=== PATIENT | female | born 2000 | race Caucasian/White ===

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

== ENCOUNTER 2023-02-12 20:57 | Emergency (ER) | payer BC, OTHER ==
[~2023-02-12] VITALS: Ht 167.6 cm; Wt 52.2 kg
--- NOTE | 2023-02-12 21:10 | NUR ---
[id number] FRM HOME FOR OD "TOOK 20-30 GABAPENTIN PILLS" "WAS TRYING TO ". PATIENT IS AAOX4. ABLE TO MAKE NEEDS KNOWN. +VOMITING AT HOME. PATIENT IS BEING ACCOMPANIED BY SIGNIFANT OTHERS. ATTACHED TO MONITOR. VITALS CHECKED.
--- NOTE | 2023-02-12 21:19 | NUR ---
SPOKE TO RENAN AT [facility] WITH FOLLOWING RECOMMENDATIONS: MONITOR PATINT FOR LOW BP, PROTECT AIR WAY, LABS INCLUDING TOXICOLOGY, CHARCOAL AND 6 HOURS OF OBS FROM THE TIME OF DIGESTION.
--- NOTE | 2023-02-12 21:28 | NUR ---
IV JOSELITO INSERTED ON LEFT AC G20. BLOOD DRAWN AND SENT TO LAB
--- NOTE | 2023-02-12 21:29 | NUR ---
PATIENT ENCOURAGED TO GIVE URINE SAMPLE. SHE IS BEING INSTRUCTED TO LET SITTER KNOW IF SHE IS READY TO PEE.
--- NOTE | 2023-02-12 21:29 | NUR ---
COVID SWAB DONE AND SENT TO LAB
[2023-02-12] MEDS ORDERED: ACTIVATED CHARCOAL 25 GM/120 ML TUBE PO ONE (21:30)
[2023-02-12] MEDS ORDERED: ACTIVATED CHARCOAL 25 GM/120 ML TUBE ONE (21:34)
[2023-02-12 21:35] LABS: BASOPHILS % (AUTO) 0.4 % (0.0-2.0); EOSINOPHILS % (AUTO) 0.4 % (0.0-6.0); HEMATOCRIT 39 % (33-45); LYMPHOCYTES # (AUTO) 2.5 K/uL (0.8-4.8); LYMPHOCYTES % (AUTO) 19.7 % (20.0-44.0); MEAN CORPUSCULAR HGB CONC 33 g/dl (31.0-36.0); MEAN CORPUSCULAR VOLUME 85 fL (82-100); MONOCYTES # (AUTO) 0.9 K/uL (0.1-1.30); NEUTROPHILS # (AUTO) 9.1 K/uL (1.8-8.9); NEUTROPHILS % (AUTO) 72.5 % (43.0-81.0); PLATELET COUNT (AUTO) 255 K/uL (150-450); RED BLOOD CELL COUNT(AUTO) 4.58 MIL/uL (4.0-5.2); WHITE BLOOD COUNT (AUTO) 12.5 K/uL (4.3-11.0)
--- NOTE | 2023-02-12 21:53 | NUR ---
URINE SAMPLE COLLECTED AND SENT TO LAB
--- NOTE | 2023-02-12 22:10 | NUR ---
REFRESH EYEDROPS UNAVAILABLE IN OMNICELL. USED PATIENTS OWN SUPPLY. MD AWARE
[2023-02-12] MEDS: CARBOXYMETHYLCELLULOSE SODIUM 0.4 ML DROPERETTE EACHEYE PRN (22:11)
[2023-02-12 22:18] LABS: ALANINE AMINOTRANSFERASE 17 U/L (12-78); ALBUMIN 4.1 g/dL (3.4-5.0); ALCOHOL, BLOOD < 3 mg/dL (0-0); ALKALINE PHOSPHATASE 54 U/L (46-116); ASPARTATE AMINOTRANSFERASE 16 U/L (15-37); BILIRUBIN,DIRECT 0.2 mg/dL (0.0-0.2); BILIRUBIN,TOTAL 0.6 mg/dL (0.2-1.0); CALCIUM, SERUM 9.6 mg/dL (8.5-10.1); CARBON DIOXIDE 26 mmol/L (21-32); CHLORIDE 104 mmol/L (98-107); CREATININE 0.8 mg/dL (0.6-1.3); GLUCOSE 92 mg/dL (74-106); POTASSIUM 3.8 mmol/L (3.5-5.1); SODIUM SERUM 137 mmol/L (136-145); TOTAL PROTEIN, SERUM 7.3 g/dL (6.4-8.2); UREA NITROGEN, BLOOD 9 mg/dL (7-18)
[2023-02-12 22:24] LABS: ACETAMINOPHEN < 10 ug/ml (10-30)
--- NOTE | 2023-02-12 22:24 | NUR ---
CALLED JESSICA DIAZ FOR PSYCH EVAL
[2023-02-12 22:32] LABS: BILIRUBIN,URINE NEGATIVE (NEGATIVE); COLOR,URINE YELLOW (YELLOW); LEUKOCYTE ESTERASE ,URINE 2+ (NEGATIVE); NITRITE, URINE NEGATIVE (NEGATIVE); PROTEIN,URINE NEGATIVE (NEGATIVE); UGLUCOSE NEGATIVE (NEGATIVE); UROBILINOGEN,URINE 0.2 EU/dL (0.2)
[2023-02-12 22:47] LABS: BACTERIA,URINE Few /HPF (None Seen); RBC,URINE 0-2 /HPF (0-2); WBC,URINE 21-50 /HPF (0-3)
[2023-02-12] MEDS ORDERED: CIPROFLOXACIN HCL 500 MG TABLET PO ONE (23:00)
--- NOTE | 2023-02-12 23:10 | NUR ---
CRISIS BOTTLING LINE ATTENDANT MARTIR AT BED SIDE
[2023-02-12] MEDS ORDERED: CIPROFLOXACIN HCL 500 MG TABLET ONE (23:13)
--- NOTE | 2023-02-12 23:19 | NUR ---
NORA FROM [facility] REQUESTED UTOX RESULTS. REPORTED
[2023-02-13] MEDS ORDERED: NITR100C6 PO (03:05)
[2023-02-13] MEDS ORDERED: CIPR-262 PO (03:10)
--- NOTE | 2023-02-13 03:25 | NUR ---
Patient discharged to home in stable condition. Written and verbal after care instructions given. Patient verbalizes understanding of instruction. IV removed. Catheter intact and site benign. Pressure and 4x4 applied to site. No bleeding noted.
[2023-02-13 03:31] VITALS: BP 103/58
== END 2023-02-13 03:32 | disposition home or self-care (01) ==
LOC: ER 20:58
DX: T42.6X2A Poisoning by other antiepileptic and sedative-hypnotic drugs, intentional self-harm, initial encounter (principal); N39.0 Urinary tract infection, site not specified; H04.129 Dry eye syndrome of unspecified lacrimal gland; F32.A Depression, unspecified; F41.9 Anxiety disorder, unspecified; Z79.899 Other long term (current) drug therapy; Z98.890 Other specified postprocedural states; Z88.0 Allergy status to penicillin; Y92.89 Other specified places as the place of occurrence of the external cause
CPT/HCPCS: 36415; 80048-TC; 80076-TC; 81001; 85025-TC; 87086-TC; G0480

== ENCOUNTER 2024-03-14 19:12 | Emergency (ER) | payer BC ==
[~2024-03-14] VITALS: Ht 167.6 cm; Wt 56.7 kg
[~2024-03-14 19:12] MED LIST changes: +CIPR-262 PO
[2024-03-14 19:39] LABS: BASOPHILS % (AUTO) 0.1 % (0.0-2.0); EOSINOPHILS % (AUTO) 0.4 % (0.0-6.0); HEMATOCRIT 35 % (33-45); HEMOGLOBIN 12.1 g/dL (11.5-14.8); LYMPHOCYTES # (AUTO) 1.5 K/uL (0.8-4.8); LYMPHOCYTES % (AUTO) 15.5 % (20.0-44.0); MEAN CORPUSCULAR HEMOGLOBIN 30 PG (26.0-33.0); MEAN CORPUSCULAR HGB CONC 34 g/dl (31.0-36.0); MEAN CORPUSCULAR VOLUME 87 fL (82-100); MONOCYTES # (AUTO) 0.6 K/uL (0.1-1.30); MONOCYTES % (AUTO) 6.3 % (2.0-12.0); NEUTROPHILS # (AUTO) 7.4 K/uL (1.8-8.9); NEUTROPHILS % (AUTO) 77.7 % (43.0-81.0); PLATELET COUNT (AUTO) 223 K/uL (150-450); RED BLOOD CELL COUNT(AUTO) 4.08 MIL/uL (4.0-5.2); RED CELL DISTRIBUTION WIDTH 14.5 % (11.5-15.0); WHITE BLOOD COUNT (AUTO) 9.5 K/uL (4.3-11.0)
[2024-03-14 20:02] LABS: CALCIUM, SERUM 8.8 mg/dL (8.5-10.1); CARBON DIOXIDE 26 mmol/L (21-32); CHLORIDE 107 mmol/L (98-107); GLUCOSE 102 mg/dL (74-106); POTASSIUM 3.8 mmol/L (3.5-5.1); SODIUM SERUM 141 mmol/L (136-145); UREA NITROGEN, BLOOD 18 mg/dL (7-18)
[2024-03-14 20:11] LABS: ALANINE AMINOTRANSFERASE 16 U/L (12-78); ALBUMIN 3.7 g/dL (3.4-5.0); ALCOHOL, BLOOD < 3 mg/dL (0-10); ALKALINE PHOSPHATASE 69 U/L (46-116); ASPARTATE AMINOTRANSFERASE 14 U/L (15-37); BILIRUBIN,DIRECT 0.2 mg/dL (0.0-0.2); BILIRUBIN,TOTAL 0.5 mg/dL (0.2-1.0); TOTAL PROTEIN, SERUM 7.2 g/dL (6.4-8.2)
[2024-03-14 20:12] LABS: ACETAMINOPHEN 0 ug/ml (10-30); SALICYLATE 0.6 mg/dL (2.8-20.0)
[2024-03-14] MEDS ORDERED: POLYVINYL ALCOHOL 15 ML BOTTLE ONE (20:23)
[2024-03-14] MEDS ORDERED: TDAP [DIPH/PERTUSSIS/TET] 0.5 ML VIAL IM ONE (20:24)
[2024-03-14] MEDS: TDAP [DIPH/PERTUSSIS/TET] 0.5 ML VIAL IM ONE (20:26)
[2024-03-14] MEDS: POLYVINYL ALCOHOL 15 ML BOTTLE EACHEYE PRN (20:26)
[2024-03-15 00:21] LABS: APPEARANCE,URINE CLEAR (CLEAR); BILIRUBIN,URINE NEGATIVE (NEGATIVE); BLOOD, URINE NEGATIVE Ery/uL (NEGATIVE); COLOR,URINE YELLOW (YELLOW); KETONES,URINE 1+ mg/dL (NEGATIVE); LEUKOCYTE ESTERASE ,URINE NEGATIVE (NEGATIVE); NITRITE, URINE NEGATIVE (NEGATIVE); PROTEIN,URINE NEGATIVE (NEGATIVE); UGLUCOSE NEGATIVE (NEGATIVE); UROBILINOGEN,URINE 0.2 EU/dL (0.2)
[2024-03-15 00:29] LABS: PREGNANCY TEST URINE QUAL NEGATIVE (NEGATIVE)
[2024-03-15 00:39] LABS: AMPHETAMINE, URINE NEGATIVE (NEGATIVE); BARBITURATE, URINE NEGATIVE (NEGATIVE); BENZODIAZEPINE, URINE NEGATIVE (NEGATIVE); CANNABINOID, URINE NEGATIVE (NEGATIVE); COCCAINE, URINE NEGATIVE (NEGATIVE); OPIATE, URINE NEGATIVE (NEGATIVE); PHENCYCLIDINE SCREEN,URINE NEGATIVE (NEGATIVE)
[2024-03-15 03:40] VITALS: BP 118/76; TEMP 98.4; O2SAT 100
== END 2024-03-15 03:48 | disposition home or self-care (01) ==
LOC: ER 19:25
DX: S61.512A Laceration without foreign body of left wrist, initial encounter (principal); R45.851 Suicidal ideations; R10.2 Pelvic and perineal pain; Z79.899 Other long term (current) drug therapy; F32.A Depression, unspecified; Z20.822 Contact with and (suspected) exposure to COVID-19; Z88.0 Allergy status to penicillin; Z88.1 Allergy status to other antibiotic agents; W45.8XXA Other foreign body or object entering through skin, initial encounter; Y93.89 Activity, other specified; Y92.89 Other specified places as the place of occurrence of the external cause; Y99.8 Other external cause status
CPT/HCPCS: 36415; 80048-TC; 80076-TC; 84703-TC; 85025-TC; 90715; G0480